=== PATIENT | male | born 1960 | race African-American/Black ===

== ENCOUNTER 2017-10-01 01:05 | Inpatient (IN) | payer BC, OTHER ==
[2017-10-01] VITALS (30 sets, daily range): BP systolic 101–161; BP diastolic 33–125
[~2017-10-01] VITALS: Ht 172.7 cm; Wt 79.8 kg
[2017-10-01] MEDS ORDERED: METF500T4 PO (01:16)
--- NOTE | 2017-10-01 01:25 | NUR ---
PT MONICA RANKIN 89 FROM HOME, CALLED BECAUSE PT IS ALTERED, PT A/O X 2 TO SELF/PLACE, BREATHING EVEN/UNLABORED, CARDIAC MONIOTR IN PLACE SINUS TACH 118, SKIN WARM/INTACT, NO C/O PAIN AT THIS TIME, PER PT "MY LAST DRINK WAS YESTERDAY, I DRINK A FEW GLASSES OF VODKAH A DAY"
[2017-10-01 01:27] LABS: BASOPHILS % (AUTO) 0.3 % (0.0-2.0); EOSINOPHILS % (AUTO) 0.3 % (0.0-6.0); HEMATOCRIT 42 % (39-51); HEMOGLOBIN 13.9 g/dL (13.5-17.5); LYMPHOCYTES % (AUTO) 11.5 % (20.0-44.0); MEAN CORPUSCULAR HEMOGLOBIN 29 PG (26.0-33.0); MEAN CORPUSCULAR HGB CONC 33 g/dl (31.0-36.0); MEAN CORPUSCULAR VOLUME 86 fL (80-96); MONOCYTES # (AUTO) 0.9 /CMM (0.1-1.30); MONOCYTES % (AUTO) 10.6 % (2.0-12.0); NEUTROPHILS # (AUTO) 6.9 /CMM (1.8-8.9); NEUTROPHILS % (AUTO) 77.3 % (43.0-81.0); PLATELET COUNT (AUTO) 148 /CMM (150-450); RDW COEFFICIENT OF VARIATION 20.3 (11.5-15.0); RED BLOOD CELL COUNT(AUTO) 4.88 MIL/uL (4.5-6.0); WHITE BLOOD COUNT (AUTO) 8.9 K/uL (4.3-11.0)
[2017-10-01] MEDS ORDERED: IV NS 0.9% 1,000 ML BAG IV ONE (01:30)
[2017-10-01 01:41] LABS: SERUM AMMONIA 62 umol/L (11-32)
[2017-10-01 01:42] LABS: INR 0.98 (0.87-1.13); PROTHROMBIN TIME 10.2 SECS (9.5-12.7)
[2017-10-01 01:47] LABS: CARBON DIOXIDE 22 mmol/L (21-32); CHLORIDE 92 mmol/L (98-107); CREATININE 1.3 mg/dL (0.6-1.3); GLUCOSE 309 mg/dL (74-106); POTASSIUM 3.4 mmol/L (3.5-5.1); SODIUM SERUM 136 mmol/L (136-145); UREA NITROGEN, BLOOD 10 mg/dL (7-18)
[2017-10-01 01:48] LABS: TROPONIN I 0.042 ng/mL (0.00-0.056)
[2017-10-01 01:50] LABS: ACETAMINOPHEN 0 ug/ml (10-30); ALANINE AMINOTRANSFERASE 31 U/L (12-78); ALBUMIN 4.1 g/dL (3.4-5.0); ALCOHOL, BLOOD < 3 mg/dL (0-0); ALKALINE PHOSPHATASE 87 U/L (46-116); ASPARTATE AMINOTRANSFERASE 32 U/L (15-37); BILIRUBIN,DIRECT 0.3 mg/dL (0.0-0.2); BILIRUBIN,TOTAL 1.1 mg/dL (0.2-1.0); TOTAL PROTEIN, SERUM 8.8 g/dL (6.4-8.2)
[2017-10-01] MEDS ORDERED: LACTULOSE 10 G/15 ML UDC (PYXIS) PO ONE (02:00)
[2017-10-01] MEDS ORDERED: LACTULOSE 10 G/15 ML UDC (PYXIS) ONE ×2 (02:03→02:04)
--- NOTE | 2017-10-01 02:10 | NUR ---
PT HAD EPISODE EMESIS, NO PAIN, ER MD AWARE, ORDERS TO FOLLOW
[2017-10-01] MEDS ORDERED: ONDANSETRON HCL/PF 4 MG/2 ML VIAL ONE (02:11)
[2017-10-01 02:21] LABS: APPEARANCE,URINE CLEAR (CLEAR); BILIRUBIN,URINE NEGATIVE (NEGATIVE); BLOOD, URINE TRACE-INTA Ery/uL (NEGATIVE); COLOR,URINE YELLOW (YELLOW); KETONES,URINE 1+ (NEGATIVE); LEUKOCYTE ESTERASE ,URINE NEGATIVE (NEGATIVE); NITRITE, URINE NEGATIVE (NEGATIVE); PH,URINE 6.5 (5.0-8.0); PROTEIN,URINE 2+ mg/dl (NEGATIVE); UGLUCOSE 3+ mg/dL (NEGATIVE); UROBILINOGEN,URINE 0.2 EU/dL (0.2)
[2017-10-01 02:27] LABS: BACTERIA,URINE Few /HPF (None Seen); SQUAMOUS EPITHELIAL CELL,UR Few /HPF (None Seen); WBC,URINE 0-2 /HPF (0-3); YEAST,URINE Rare /HPF (None Seen)
[2017-10-01] MEDS ORDERED: ONDANSETRON HCL/PF 4 MG/2 ML VIAL IV ONE (02:30)
--- NOTE | 2017-10-01 02:51 | NUR ---
ICU 256
[2017-10-01] MEDS ORDERED: ONDANSETRON HCL/PF 4 MG/2 ML VIAL IVP PRN (03:00)
[2017-10-01] MEDS ORDERED: MAG HYDROX/AL HYDROX/SIMETH 30 ML UDC PO PRN (03:00)
[2017-10-01] MEDS ORDERED: CHLORDIAZEPOXIDE HCL 25 MG CAPSULE PO PRN (03:00)
[2017-10-01] MEDS ORDERED: INSULIN REGULAR, HUMAN 100 UNIT in IV NS 0.9% 99 ML IV PRN ×2 (03:00)
[2017-10-01] MEDS ORDERED: ACETAMINOPHEN 325 MG TABLET PO PRN (03:00)
[2017-10-01] MEDS ORDERED: HYDROCODONE/APAP 5/325MG 1 EACH TABLET PO PRN (03:00)
[2017-10-01] MEDS ORDERED: ZOLPIDEM TARTRATE 5 MG TABLET PO PRN (03:00)
[2017-10-01] MEDS ORDERED: Z GUARD REMEDY 2 OZ OINT TP PRN (03:00)
[2017-10-01] MEDS ORDERED: INSULIN REGULAR, HUMAN 100 UNIT/ML 10 ML VIAL IV ONE (03:00)
[2017-10-01] MEDS ORDERED: MAGNESIUM HYDROXIDE 30 ML UDC PO PRN (03:00)
[2017-10-01] MEDS ORDERED: MORPHINE SULFATE INJ 2 MG/ML DISP.SYRIN IV PRN (03:00)
--- NOTE | 2017-10-01 03:06 | NUR ---
Jordin galloway in [facility] - 10/01/17 at 0307 by JULIA REPORT TO MICHAELA BALLARD
--- NOTE | 2017-10-01 03:07 | NUR ---
REPORT TO MICHAELA BALLARD, ALL QUESTIONS ANSWERED
[2017-10-01] MEDS ORDERED: INSULIN REGULAR, HUMAN 100 UNIT/ML 10 ML VIAL ONE (03:27)
[2017-10-01] MEDS ORDERED: POTASSIUM CHLORIDE 10 MEQ/50 ML PREMIXED IVPB FOR PERIPHERAL LINE IV ONE (03:30)
[2017-10-01] MEDS ORDERED: LACTULOSE 10 G/15 ML UDC (PYXIS) GT ONE (03:30)
[2017-10-01] MEDS ORDERED: LACTULOSE 10 G/15 ML UDC (PYXIS) GT SCH (03:30)
--- NOTE | 2017-10-01 03:31 | NUR ---
WITNESSED AND VERIFIED INSULIN DRIP 100U IN 100MLS NS IVPB TO BE TRANSFUSED AT 5U/HR PER DR. DOSHI/ PROTOCOL WITH NELLIE LE.
--- NOTE | 2017-10-01 03:38 | NUR ---
RN/ICU- ADMITTED THIS 57 Y/O MALE FROM ER VIA [facility]PIERSON, ACCOMPANIED BY ER STAFF PER ACLS PROTOCOL.NURSING FOCUS:ALTERED NUTRITION R/T DIAGNOSIS OF DKA. ROUTINE ICU ADMISSION CARE INITIATED. ON INSULIN DRIP AT 5 UNITS/HR PER DKA PROTOCOL.PT. IS AWAKE, ALERT, EXPRESSIVE OF NEEDS,PT. NOTED TO BE HAVING TREMORS ON UPPER EXTREMITIES, DENIES PAIN OR DISCOMFORT. PT. H/O ETOH ABUSE, PER PT. HAD ALCOHOL DRINK LAST FRIDAY, DOES NOT RECALL THE AMOUNT TAKEN.PT. IS A FULL CODE.
[2017-10-01] MEDS: INSULIN REGULAR, HUMAN 100 UNIT in IV NS 0.9% 99 ML IV PRN ×4 (03:49→12:17)
[2017-10-01 03:58] LABS: ABG BASE EXCESS 4.5 mmol/L; ABG OXYGEN SATURATION 95.5 % (92.0-98.5); ABG PCO2 35.3 mmHg (35.0-45.0); ABG PH 7.508 (7.350-7.450); ABG PO2 78.7 mmHg (75.0-100.0); AaDO2 28.8 mmHg; COHb 0.7 % (0.5-1.5); MetHb 0.9 % (0.0-1.5); SITE, ABG Right Radial; VENT MODE, BG ROOM AIR
[2017-10-01] MEDS: IV NS 0.9% 1,000 ML IV PRN ×3 (03:59→19:48)
[2017-10-01] MEDS: BLOOD SUGAR DIAGNOSTIC 1 EACH STRIP IN SCH ×10 (04:10→14:58)
[2017-10-01] MEDS ORDERED: Thiamine 100 MG/ML VIAL ONE (04:19)
[2017-10-01] MEDS: Thiamine 100 MG in IV D5W 50 ML IV SCH (04:24)
[2017-10-01] MEDS ORDERED: Folic acid 1 MG/0.2 ML VIAL ONE (04:36)
[2017-10-01] MEDS ORDERED: POTASSIUM CL. PREMIX PERIPHER. 100 ML ONE (04:51)
[2017-10-01] MEDS: Folic acid 1 MG in IV D5W 50 ML IV SCH (04:52)
[2017-10-01 04:56] LABS: AMYLASE 144 U/L (25-115); LIPASE 312 U/L (73-393)
[2017-10-01] MEDS: POTASSIUM CL. PREMIX PERIPHER. 50 ML IV SCH ×2 (05:02→06:03)
--- NOTE | 2017-10-01 06:55 | NUR ---
RN/ICU- PT. ASLEEP, AROUSABLE, NO NEURO STATUS CHANGE, REMAINS ON INSULIN DRIP AT 0.5 UNITS PER HR. PER DKA PROTOCOL.
--- NOTE | 2017-10-01 08:00 | NUR ---
Received 57 year old male patient with dx of DKA lying in bed awake, alert and oriented x 3. Able to move all extremities with full strength. Denies pain. Monitor shows sinus rhythm at 81 bpm. Pulses are palpable. IV in left hand infusing insulin at 0.5 units/hour and NS at 125 ml/hour. IV in RAC is heplocked. Patient is NPO. Able to urinate using urinal. Skin is warm, dry and intact. Temp is 99.3.
[2017-10-01] MEDS ORDERED: PANTOPRAZOLE 40 MG VIAL IV SCH (09:00)
[2017-10-01] MEDS: Potassium Chloride 10 MEQ in IV D5W 50 ML IV SCH ×2 (09:18→10:21)
--- NOTE | 2017-10-01 10:40 | NUR ---
Tech doing ultrasound of liver.
--- NOTE | 2017-10-01 11:30 | NUR ---
Patient received kcl 10 meq ivp x 2 over two hours. BMP was ordered. Insulin drip still off. BG at 11:00 was 92.
--- NOTE | 2017-10-01 12:30 | NUR ---
Insulin drip stopped per MD order. Patient will now have accuchecks Q2 hours with regular insulin sliding scale.
[2017-10-01 12:31] LABS: CALCIUM, SERUM 9.3 mg/dL (8.5-10.1); CREATININE 0.8 mg/dL (0.6-1.3); POTASSIUM 3.5 mmol/L (3.5-5.1)
[2017-10-01] MEDS ORDERED: DEXTROSE 50%-WATER 50 ML DISP.SYRIN IV PRN (13:00)
[2017-10-01] MEDS ORDERED: BLOOD SUGAR DIAGNOSTIC 1 EACH STRIP IN SCH (13:00)
[2017-10-01] MEDS ORDERED: INSULIN REGULAR, HUMAN 100 UNIT/ML 3 ML VIAL SQ PRN (13:00)
--- NOTE | 2017-10-01 15:00 | NUR ---
Accucheck at 15:00 - 89
--- NOTE | 2017-10-01 15:14 | NUR ---
Patient's is at bedside. They are waiting to speak with Dr. Zaman. Gave patient some ice chips as he is alert and oriented x 3.
[2017-10-01] MEDS: CHLORDIAZEPOXIDE HCL 25 MG CAPSULE PO SCH (17:32)
--- NOTE | 2017-10-01 18:26 | NUR ---
Patient was given librium 25 mg po at 17:45. He still has tremors in his hands but denies anxiety or restlessness. He said he feels very calm. Regular diet was ordered for dinner but he only ate about 20%. I asked him if he wanted me to leave the tray to finish later but he said no. He denied nausea but said he had eaten enough. Vital signs stable. Patient watching TV in his room.
--- NOTE | 2017-10-01 19:30 | NUR ---
ENERGY ECONOMIST INITIAL NOTE RECEIVED REPORT FROM FIDE BALLARD. PT IN BED. A/A/O X4. LUNG SOUNDS CLEAR. BOWEL SOUNDS PRESENT. PULSES PRESENT. IV PATENT AND INTACT. PT CONTINENT TO URINE AND STOOL. BED IN LOW LOCKED POSITION. CALL LIGHT WITHIN REACH. WILL CONTINUE TO MONITOR.
--- NOTE | 2017-10-01 23:30 | NUR ---
HOTBED OPERATOR PT IN BED, RESTING. NO DISTRESS. NO PAIN. WILL CONTINUE TO MONITOR.
[2017-10-02] VITALS (8 sets, daily range): BP systolic 130–159; BP diastolic 77–93
[2017-10-02] MEDS: CHLORDIAZEPOXIDE HCL 25 MG CAPSULE PO SCH ×4 (00:25→18:25)
[2017-10-02] MEDS: Thiamine 100 MG in IV D5W 50 ML IV SCH (02:51)
[2017-10-02] MEDS: IV NS 0.9% 1,000 ML IV PRN (02:51)
[2017-10-02] MEDS: Folic acid 1 MG in IV D5W 50 ML IV SCH (02:51)
--- NOTE | 2017-10-02 03:39 | NUR ---
LINK WIRE FABRIC MACHINE OPERATOR SPOKE WITH DR SHERMAN REGARDING TELE STATUS. DR SHERMAN AGREES TO TRANSFER PATIENT TO TELE. PT IS STABLE, OFF OF INSULIN DRIP. PT AWARE. WILL ENDORSE TO NEXT RN.
--- NOTE | 2017-10-02 04:00 | NUR ---
FORESTRY CONSULTANT REPORT GIVEN TO TRINIDAD BALLARD FOR MARYANA. PT TRANSPORTED IN STABLE CONDITION.
--- NOTE | 2017-10-02 04:10 | NUR ---
RN NOTES RECEIVED PT FROM ICU VIA HOSPITAL BED. PT AWAKE, ALERT AND ORIENTED X2-3, CONFUSED. PT ON ROOM AIR AND TOLERATED WELL. IV ACCESS ON LEFT HAND PATENT AND INTACT WITH ONGOING IVF INFUSING WELL. ATTACHED TO TELE MONITOR WHICH READS SINUS RHYTHM AT 67. VITAL SIGNS STABLE, BLOOD SUGAR 94MG/DL. SKIN CLEAR AND INTACT. PT DENIES ANY PAIN AND DISCOMFORT. REORIENTED PT FREQUENTLY. PT NOTED CALLING AND WALKING AROUND THE ROOM. KEPT PT ATTENDED. WILL CONTINUE TO MONITOR PT.
--- NOTE | 2017-10-02 05:30 | NUR ---
RN NOTES CALLED AND SPOKE TO DR QUINTANILLA REGARDING PT VERY CONFUSED, GETTING OUT OF THE ROOM, WALKING AROUND THE HALLWAY AND WANTED TO GO HOME. PER DR SHERMAN, ASK DR HOLLAND TO SEE JONAH PT. FREQUENT REORIENTATION OF THE PT DONE. WILL CONTINUE TO MONITOR PT.
--- NOTE | 2017-10-02 07:00 | NUR ---
RN NOTES PATIENT RESTING IN BED. PATIENT ALERT ORIENTEDX1, CONFUSED. NO FACIAL GRIMACES NOTED. NONLABORED BREATHING NOTED ON ROOM AIR.BED IN LOWEST LOCKED POSITION. CALL LIGHT WITHIN REACH. WILL CONTINUE TO MONITOR
--- NOTE | 2017-10-02 07:00 | NUR ---
RN NOTES: PATIENT RESTING IN BED. NO SIGNS OF DISTRESS. PATIENT CONFUSED AO X1. NO IV SITE NOTED. PATIENT PULLED IT OUT PREVIOUS SHIFT. PATIENT REFUSING IV LINE CURRENTLY. BENEFITS AND RISKS EXPLAINED. WILL CONTINUE TO OFFER. BED IN LOWEST LOCKED POSITION. WILL CONTINUE TO MONITOR
--- NOTE | 2017-10-02 07:00 | NUR ---
RN NOTES SPOKE TO DR HOLLAND, MADE HER AWARE TO SEE THE PT TODAY FOR CONSULT PER DR SHERMAN. PT STILL VERY CONFUSED, PULLED OUT HIS IV LINE, AND WALKING OUT OF THE ROOM AND WANTS TO GO HOME. DR HOLLAND ORDERED TO GIVE ZYPREXA 2.5MG TAB PO X1 NOW AND WILL COME TO SEE THE PT. REORIENT PT AND WILL CONTINUE TO MONITOR PT.
[2017-10-02] MEDS ORDERED: OLANZAPINE 2.5 MG TABLET ONE (07:05)
--- NOTE | 2017-10-02 07:10 | NUR ---
RN NOTES PT IN THE ROOM, STILL CONFUSED, KEEPS ON WALKING AROUND THE ROOM. ZYPREXA 2.5 MG TAB GIVEN PO. WILL REINSERT NEW IV LINE WHEN PT CALMS DOWN. FREQUENT REORIENTATION DONE. ENDORSED TO MORNING RN FOR CONTINUITY OF CARE.
[2017-10-02] MEDS ORDERED: OLANZAPINE 2.5 MG TABLET PO SCH (07:30)
[2017-10-02 07:52] LABS: BASOPHILS # (AUTO) 0.1 /CMM (0.0-0.2); BASOPHILS % (AUTO) 0.7 % (0.0-2.0); EOSINOPHILS # (AUTO) 0.2 /CMM (0.0-0.7); EOSINOPHILS % (AUTO) 2.1 % (0.0-6.0); HEMATOCRIT 40 % (39-51); HEMOGLOBIN 13.3 g/dL (13.5-17.5); LYMPHOCYTES # (AUTO) 1.4 /CMM (0.8-4.8); LYMPHOCYTES % (AUTO) 14.9 % (20.0-44.0); MEAN CORPUSCULAR HEMOGLOBIN 29 PG (26.0-33.0); MEAN CORPUSCULAR HGB CONC 34 g/dl (31.0-36.0); MEAN CORPUSCULAR VOLUME 87 fL (80-96); MONOCYTES # (AUTO) 0.6 /CMM (0.1-1.30); MONOCYTES % (AUTO) 6.5 % (2.0-12.0); NEUTROPHILS # (AUTO) 7.1 /CMM (1.8-8.9); NEUTROPHILS % (AUTO) 75.8 % (43.0-81.0); PLATELET COUNT (AUTO) 116 /CMM (150-450); RDW COEFFICIENT OF VARIATION 20.5 (11.5-15.0); RED BLOOD CELL COUNT(AUTO) 4.58 MIL/uL (4.5-6.0); WHITE BLOOD COUNT (AUTO) 9.4 K/uL (4.3-11.0)
[2017-10-02 08:08] LABS: INR 1.01 (0.87-1.13); PROTHROMBIN TIME 10.5 SECS (9.5-12.7)
[2017-10-02 08:11] LABS: ALBUMIN 3.8 g/dL (3.4-5.0); BILIRUBIN,TOTAL 1.6 mg/dL (0.2-1.0); CALCIUM, SERUM 9.5 mg/dL (8.5-10.1); CREATININE 0.9 mg/dL (0.6-1.3); MAGNESIUM 1.5 mg/dL (1.8-2.4); PHOSPHORUS 1.6 mg/dL (2.5-4.9); POTASSIUM 3.5 mmol/L (3.5-5.1); TOTAL PROTEIN, SERUM 8.1 g/dL (6.4-8.2)
[2017-10-02 08:17] LABS: THYROID STIMULATING HORMONE 1.758 uIU/mL (0.358-3.74)
[2017-10-02] MEDS: PANTOPRAZOLE 40 MG TABLET.DR PO SCH (08:18)
[2017-10-02] MEDS: Potassium Phosphate meq 11 MEQ in IV D5W 100 ML IV SCH ×2 (11:00→14:00)
[2017-10-02] MEDS: Magnesium 1GM/D5W 100ML PREMIX 100 ML IV SCH ×2 (11:30→12:30)
[2017-10-02] MEDS: LACTULOSE 10 G/15 ML UDC (PYXIS) PO SCH ×2 (13:49→21:37)
--- NOTE | 2017-10-02 14:12 | NUR ---
RN NOTES: PATIENT REMOVED IV LINE DURING PREVIOUS SHIFT. ATTEMPTED STARTING IV LINEX3, UNSUCCESSFUL. PATIENT REFUSING PERIPHERAL LINE. DR HINTON AWARE. ORDERED MAGNESIUM OXIDE 400 MG DAILY WELL KCL 40 MG DAILY. SPOKE WITH GILSON FROM PHARMACY REGARDING ORDERS.
[2017-10-02] MEDS ORDERED: K PHOS NEUTRAL 250 MG TABLET PO ONE (14:30)
--- NOTE | 2017-10-02 15:00 | NUR ---
RN NOTES NO DISCHARGE TODAY PER DR HINTON
[2017-10-02] MEDS: MAGNESIUM OXIDE 400 MG TABLET PO SCH (15:14)
[2017-10-02] MEDS: POTASSIUM CHLORIDE 20 MEQ TAB.PRT.SR PO SCH (15:15)
[2017-10-02] MEDS ORDERED: INSULIN REGULAR, HUMAN 100 UNIT/ML 3 ML VIAL SQ PRN (16:00)
[2017-10-02] MEDS ORDERED: DEXTROSE 50%-WATER 50 ML DISP.SYRIN IV PRN (16:00)
[2017-10-02] MEDS: BLOOD SUGAR DIAGNOSTIC 1 EACH STRIP IN SCH ×2 (16:40→21:37)
[2017-10-02] MEDS: OLANZAPINE 2.5 MG TABLET PO SCH (16:41)
--- NOTE | 2017-10-02 18:49 | NUR ---
RN NOTES: PATIENT RESTING IN BED. PATIENT ALERT ORIENTEDX1, CONFUSED. NO FACIAL GRIMACES NOTED. NONLABORED BREATHING NOTED ON ROOM AIR. BED IN LOWEST LOCKED POSITION. CALL LIGHT WITHIN REACH. SITTER AT BEDSIDE. DURING SHIFT, PATIENT KEPT CLEAN AND DRY. NO SEIZURES NOTED. NO VOMITTING.
--- NOTE | 2017-10-02 19:20 | NUR ---
MS RN NOTES RECEIVED PT IN SITTING UP IN BED, AWAKE & VERBALLY RESPONSIVE. CONFUSED. NO DISTRESS, NO SOB NOTED AT THIS TIME. RESPIRATION IS EVEN AND UNLABORED. NO S/S OF HYPO/ HYPERGLYCEMIA NOTED AT THIS TIME. DENIES ANY PAIN OR DISCOMFORT. PT WITH NO IV SITE NOTED, ENDORSED BY THE DAY SHIFT RN. ATTEMPTED TO INSERT IV BUT PT REFUSED X 3, RISK AND BENEFITS EXPLAINED, CHARGE NURSE JUAN J AWARE. PT REFUSED BODY ASSESSMENT, RISK AND BENEFITS EXPLAINED. ON SITTER FOR SAFETY. ALL NEEDS ATTENDED. SAFETY PRECAUTIONS OBSERVED. WILL CONT TO MONITOR.
--- NOTE | 2017-10-02 19:33 | NUR ---
RN NOTES: PATIENT RESTING IN BED. PATIENT ALERT ORIENTEDX1, CONFUSED. NO FACIAL GRIMACES NOTED. NONLABORED BREATHING NOTED ON ROOM AIR. BED IN LOWEST LOCKED POSITION. CALL LIGHT WITHIN REACH. SITTER AT BEDSIDE. DURING SHIFT, PATIENT KEPT CLEAN AND DRY. NO SEIZURES NOTED. NO VOMITTING. ATTEMPTED IV INSERTION AGAIN, PATIENT REFUSING. DR HINTON AWARE OF PATIENT'S REFUSAL. BENEFITS AND RISKS EXPLAINED TO PATIENT, MULTIPLE TIMES. PATIENT STILL REFUSING. ENDORSED TO NEXT SHIFT
--- NOTE | 2017-10-02 21:07 | NUR ---
pt is very anxious at this time, screaming, walking in the hallway trying to get out of the exit door, very angry at this time. pt with 1 on 1 sitter for safety informed dr. rose with n.o noted and carried out.
[2017-10-02] MEDS ORDERED: LORAZEPAM 1 MG TABLET ONE (21:10)
[2017-10-02] MEDS ORDERED: LORAZEPAM 1 MG TABLET PO PRN (21:30)
--- NOTE | 2017-10-02 21:38 | NUR ---
pt is very anxious at this time, walking in the hallway trying to get out of the exit door, very angry at this time. pt with 1 on 1 sitter for safety. ativan given as ordered. pt refused to check his vs . dr. rose aware. will cont to monitor
--- NOTE | 2017-10-03 00:23 | NUR ---
PT REFUSED LIBRIUM , DOESN'T WANT TO BE BOTHERED, RISK AND BENEFITS EXPLAINED, PT STILL REFUSED X 3, CHARGE NURSE AWARE
[2017-10-03] MEDS: LACTULOSE 10 G/15 ML UDC (PYXIS) PO SCH ×2 (05:00→12:21)
--- NOTE | 2017-10-03 05:31 | NUR ---
PT REFUSED BLOOD DRAW X 3 , RISK AND BENEFITS EXPLAINED, PT REFUSED X3. FULL TIME PARAMEDIC AT BEDSIDE. COOK MORNING WILL COME BACK LATER TO TRY AGAIN
[2017-10-03] MEDS: BLOOD SUGAR DIAGNOSTIC 1 EACH STRIP IN SCH ×4 (05:43→22:19)
--- NOTE | 2017-10-03 05:50 | NUR ---
PT REFUSED TO TAKE LACTULOSE, RISK AND BENEFITS EXPLAINED BUT PT STILL REFUSED X 3. WILL CONT TO MONITOR.
[2017-10-03] MEDS: CHLORDIAZEPOXIDE HCL 25 MG CAPSULE PO SCH ×2 (06:00)
--- NOTE | 2017-10-03 06:25 | NUR ---
PT REFUSED TO TAKE LIBRIUM , RISK AND BENEFITS EXPLAINED, PT STILL REFUSED . CHARGE NURSE AWARE.
--- NOTE | 2017-10-03 06:29 | NUR ---
MS RN NOTES PT RESTING IN BED, AROUSES EASILY. CONFUSED AND VERBALLY RESPONSIVE. . NO DISTRESS, NO SOB NOTED AT THIS TIME. RESPIRATION IS EVEN AND UNLABORED. NO S/S OF HYPO/ HYPERGLYCEMIA NOTED AT THIS TIME. LATEST BS : 107. DENIES ANY PAIN OR DISCOMFORT. ON SITTER FOR SAFETY. ALL NEEDS ATTENDED AND MET. SAFETY PRECAUTIONS OBSERVED. WILL ENDORSE TO NEXT SHIFT FOR MARYANA.
--- NOTE | 2017-10-03 07:30 | NUR ---
RN NOTES: PATIENT RESTING IN BED. NONLABORED BREATHING NOTED ON ROOM AIR. NO SIGNS OF DISTRESS. PATIENT ALERT ORIENTED X1 , CONFUSED. BED IN LOWEST LOCKED POSITION. CALL LIGHT WITHIN REACH. SITTER AT BED SIDE. WILL CONTINUE TO MONITOR
--- NOTE | 2017-10-03 07:48 | NUR ---
RN NOTES: PATIENT RESTING IN BED. NONLABORED BREATHING NOTED ON ROOM AIR. NO SIGNS OF DISTRESS. PATIENT ALERT ORIENTEDX, CONFUSED. BED IN LOWEST LOCKED POSITION. CALL LIGHT WITHIN REACH. SITTER AT BED SIDE. WILL CONTINUE TO MONITOR
[2017-10-03 08:00] VITALS: BP 108/72
[2017-10-03] MEDS: THIAMINE HCL 100 MG TABLET PO SCH (08:40)
[2017-10-03] MEDS: PANTOPRAZOLE 40 MG TABLET.DR PO SCH (08:40)
[2017-10-03] MEDS: OLANZAPINE 2.5 MG TABLET PO SCH (08:43)
[2017-10-03] MEDS: FOLIC ACID 1 MG TABLET PO SCH (08:43)
[2017-10-03 12:12] LABS: CALCIUM, SERUM 9.9 mg/dL (8.5-10.1); MAGNESIUM 1.6 mg/dL (1.8-2.4); PHOSPHORUS 2.8 mg/dL (2.5-4.9); POTASSIUM 3.8 mmol/L (3.5-5.1)
--- NOTE | 2017-10-03 12:18 | NUR ---
RN NOTES BS 134. PATIENT REFUSING TO TAKE INSULIN. PATIENT STATING HE WILL ONLY EAT A SNACK. BENEFITS AND RISKS EXPLAINED. PATIENT ALSO STATES THAT HE DOES NOT TAKE INSULIN AT HOME
[2017-10-03] MEDS: POTASSIUM CHLORIDE 20 MEQ TAB.PRT.SR PO SCH (12:27)
[2017-10-03] MEDS: MAGNESIUM OXIDE 400 MG TABLET PO SCH (12:27)
[2017-10-03] MEDS ORDERED: LACTULOSE 10 G/15 ML UDC (PYXIS) PO SCH ×2 (12:30→21:00)
--- NOTE | 2017-10-03 12:40 | NUR ---
RN NOTES: IV LINE, GAUGE 22 STARTED ON LEFT HAND, PATENT AND INTACT.
[2017-10-03] MEDS: IV NS 0.9% 1,000 ML IV PRN ×2 (13:46→22:36)
[2017-10-03 16:00] VITALS: BP 110/70
--- NOTE | 2017-10-03 17:40 | NUR ---
RN NOTES: PATIENT CONSUMED DINNER BEFORE BLOOD SUGRAR CHECK. BLOOD SUGAR 146. PATIENT REFUSING INSULIN. BENEFITS AND RISKS EXPLAINED
--- NOTE | 2017-10-03 19:32 | NUR ---
RN NOTES: PATIENT RESTING IN BED. NONLBAORED BREATHING ON ROOM AIR. PATIENT AOX2. PATIENT ACKNOWLEDGING BEING IN THE HOSPITAL. IV SITE PATENT AND INTACT. PATIENT ON IV HYDRATION. NO SEIZURE NOTED DURING SHIFT. PATIENT'S FACIAL EXPRESSIONS INDICATE CALMNESS. BED IN LOWEST LOCKED POSITION. CALL LIGHT WITHIN REACH. SITTER AT BEDSIDE. ENDORSED TO NEXT SHIFT
--- NOTE | 2017-10-03 19:35 | NUR ---
MS RN NOTES RECEIVED PT IN BED, AWAKE & VERBALLY RESPONSIVE. JOHANA[EARS MORE ALERT. NO DISTRESS, NO SOB NOTED AT THIS TIME. RESPIRATION IS EVEN AND UNLABORED. NO S/S OF HYPO/ HYPERGLYCEMIA NOTED AT THIS TIME. DENIES ANY PAIN OR DISCOMFORT. IV SITE ON LEFT HAND INTACT AND PATENT. IVF INFUSING WELL. ON SITTER FOR SAFETY. ALL NEEDS ATTENDED. SAFETY PRECAUTIONS OBSERVED. WILL CONT TO MONITOR.
[2017-10-03 20:00] VITALS: BP 126/92
[2017-10-04] MEDS: BLOOD SUGAR DIAGNOSTIC 1 EACH STRIP IN SCH ×2 (06:07→12:06)
[2017-10-04] MEDS: IV NS 0.9% 1,000 ML IV PRN (06:43)
--- NOTE | 2017-10-04 07:03 | NUR ---
MS RN NOTES PT SITTING UP IN BED, AWAKE & VERBALLY RESPONSIVE. APPEARS MORE ALERT. NO DISTRESS, NO SOB NOTED AT THIS TIME. RESPIRATION IS EVEN AND UNLABORED. NO S/S OF HYPO/ HYPERGLYCEMIA NOTED AT THIS TIME. DENIES ANY PAIN OR DISCOMFORT. IV SITE ON LEFT HAND INTACT AND PATENT. IVF INFUSING WELL. ON SITTER FOR SAFETY. ALL NEEDS ATTENDED. SAFETY PRECAUTIONS OBSERVED. ABLE TO AMBULATE WITHOUT DIFFICULTY. WILL ENDORSE TO NEXT SHIFT FOR MARYANA.
--- NOTE | 2017-10-04 07:50 | NUR ---
MS/RN OPENING NOTE PATIENT RECEIVED IN BED IN STABLE CONDITION. A/O X 3. NO SIGNS OF ACUTE DISTRESS. NO COMPLAIN OF PAIN OR DISCOMFORT. ALL NEEDS ATTENDED TO. CALL LIGHT WITHIN REACH. WILL CONTINUE TO MONITOR TO ENSURE SAFETY.
[2017-10-04 08:00] VITALS: BP 147/94
[2017-10-04] MEDS: THIAMINE HCL 100 MG TABLET PO SCH (08:09)
[2017-10-04] MEDS: PANTOPRAZOLE 40 MG TABLET.DR PO SCH (08:09)
[2017-10-04] MEDS: FOLIC ACID 1 MG TABLET PO SCH (08:09)
[2017-10-04] MEDS: MAGNESIUM OXIDE 400 MG TABLET PO SCH (08:09)
[2017-10-04] MEDS: POTASSIUM CHLORIDE 20 MEQ TAB.PRT.SR PO SCH (08:09)
[2017-10-04 08:17] LABS: BASOPHILS # (AUTO) 0.1 /CMM (0.0-0.2); BASOPHILS % (AUTO) 0.8 % (0.0-2.0); EOSINOPHILS # (AUTO) 0.2 /CMM (0.0-0.7); EOSINOPHILS % (AUTO) 2.7 % (0.0-6.0); HEMATOCRIT 37 % (39-51); HEMOGLOBIN 12.3 g/dL (13.5-17.5); LYMPHOCYTES # (AUTO) 1.9 /CMM (0.8-4.8); LYMPHOCYTES % (AUTO) 23.6 % (20.0-44.0); MEAN CORPUSCULAR HEMOGLOBIN 30 PG (26.0-33.0); MEAN CORPUSCULAR HGB CONC 34 g/dl (31.0-36.0); MEAN CORPUSCULAR VOLUME 88 fL (80-96); MONOCYTES # (AUTO) 0.9 /CMM (0.1-1.30); MONOCYTES % (AUTO) 11.1 % (2.0-12.0); NEUTROPHILS # (AUTO) 5.1 /CMM (1.8-8.9); NEUTROPHILS % (AUTO) 61.8 % (43.0-81.0); PLATELET COUNT (AUTO) 111 /CMM (150-450); RDW COEFFICIENT OF VARIATION 20.7 (11.5-15.0); RED BLOOD CELL COUNT(AUTO) 4.18 MIL/uL (4.5-6.0); WHITE BLOOD COUNT (AUTO) 8.2 K/uL (4.3-11.0)
[2017-10-04 08:31] LABS: CARBON DIOXIDE 23 mmol/L (21-32); CHLORIDE 103 mmol/L (98-107); CREATININE 0.8 mg/dL (0.6-1.3); GLUCOSE 126 mg/dL (74-106); MAGNESIUM 1.5 mg/dL (1.8-2.4); PHOSPHORUS 2.9 mg/dL (2.5-4.9); POTASSIUM 3.9 mmol/L (3.5-5.1); SODIUM SERUM 139 mmol/L (136-145); UREA NITROGEN, BLOOD 8 mg/dL (7-18)
[2017-10-04 08:39] LABS: THYROID STIMULATING HORMONE 1.358 uIU/mL (0.358-3.74)
[2017-10-04 08:53] LABS: SERUM AMMONIA < 10 umol/L (11-32)
[2017-10-04] MEDS: Magnesium 1GM/D5W 100ML PREMIX 100 ML IV SCH ×2 (12:01→13:20)
--- NOTE | 2017-10-04 13:27 | NUR ---
MS/RN SEEN BY DR HERNANDEZ PATIENT SEEN BY DR HERNANDEZ WITH ORDERS TO DC HOME TODAY.
[2017-10-04 15:33] VITALS: BP 135/79
--- NOTE | 2017-10-04 15:42 | NUR ---
MS/WIRE COMMUNICATIONS ENGINEER PATIENT DISCHARGE HOME IN STABLE CONDITION. A/O X 3. NO SIGNS OF ACUTE DISTRESS. NO COMPLAIN OF PAIN OR DISCOMFORT. DISCHARGE INSTRUCTIONS AND EDUCATION PROVIDED. VERBALIZED UNDERSTANDING. OFFERED FLU SHOT, PER PATIENT AND PATIENT'S JOAQUIM, THEY WILL GET IT AT THEIR DOCTOR'S OFFICE. ALSO MADE AWARE TO FOLLOW UP WITH PRIMARY DOCTOR WITHIN A WEEK. ALL NEEDS ATTENDED TO. LEFT VIA PRIVATE CAR IN STABLE CONDITION ACCOMPANIED BY .
== END 2017-10-04 15:45 | disposition home or self-care (01) | DRG 432 ==
LOC: ER 01:06 → ICU 02:53 → MED 10-02 04:07 → TELE 10-02 05:07 → MED 10-02 08:52
PROVIDERS: ADMIT Internal Medicine; ATTEND Internal Medicine
DX: K70.40 Alcoholic hepatic failure without coma (principal); G93.41 Metabolic encephalopathy; F33.2 Major depressive disorder, recurrent severe without psychotic features; E11.10 Type 2 diabetes mellitus with ketoacidosis without coma; E44.1 Mild protein-calorie malnutrition; E87.1 Hypo-osmolality and hyponatremia; E86.0 Dehydration; E87.6 Hypokalemia; F10.20 Alcohol dependence, uncomplicated; Y90.0 Blood alcohol level of less than 20 mg/100 ml; E78.5 Hyperlipidemia, unspecified; I10 Essential (primary) hypertension; I70.90 Unspecified atherosclerosis; E66.9 Obesity, unspecified; K74.60 Unspecified cirrhosis of liver; E86.1 Hypovolemia; F29 Unspecified psychosis not due to a substance or known physiological condition; F41.9 Anxiety disorder, unspecified; K21.9 Gastro-esophageal reflux disease without esophagitis; Z79.84 Long term (current) use of oral hypoglycemic drugs; Z82.49 Family history of ischemic heart disease and other diseases of the circulatory system
CPT/HCPCS: 36415; 36600; 70450-TC; 71010-TC; 76705-TC; 80048-TC; 80053-TC; 80061-TC; 80076-TC; 80305; 81000-TC; 82010-TC; 82140-TC; 82150-TC; 82746; 82962-TC; 83540-TC; 83690-TC; 83735-TC; 84100-TC; 84443-TC; 84484-TC; 85025-TC; 85730-TC; 87040-TC; 87081-TC; 87086-TC; 93307-TC; A4606; C9113; G0480; J1815; J2405; J3411; J3475; J3480; J3490; J7030; J7060; Z7610

== ENCOUNTER 2018-07-01 05:25 | Emergency (ER) | payer BC ==
[~2018-07-01] VITALS: Ht 167.6 cm; Wt 74.4 kg
[~2018-07-01 05:25] MED LIST: METF500T6 PO
--- NOTE | 2018-07-01 05:25 | NUR ---
"WITNESSED SEIZURE BY FOR 1; VERSED 5MG IV GIVEN MEDICINE WORKER"; POSTICTAL NOW. BS [address] TO HOSPITAL. PT PLACED ON 15L 02 ON SIMPLE 02 MASK D/T LOW 02 SATURATION. SKIN IS WARM AND INTACT. PATIENT IS NOT ALERT AND ORIENTED BUT WITH REACTIVE PUPILS. PT PLACED ON PULSE OX AND HEART MONITOR. WILL CONTINUE TO MONITOR FOR ANY CHANGES DURING THE SHIFT.
--- NOTE | 2018-07-01 05:26 | NUR ---
ER MD DOSHI AT BEDSIDE
[2018-07-01] MEDS ORDERED: IV NS 0.9% 1,000 ML BAG IV ONE ×2 (06:00→08:30)
--- NOTE | 2018-07-01 06:18 | NUR ---
PT OFF TO CT
--- NOTE | 2018-07-01 06:25 | NUR ---
PT BACK FROM CT
[2018-07-01] MEDS ORDERED: KETOROLAC TROMETHAMINE INJ 60 MG/2 ML VIAL IM ONE (06:30)
[2018-07-01 06:49] LABS: EOSINOPHILS % (AUTO) 0.3 % (0.0-6.0); HEMATOCRIT 46 % (39-51); HEMOGLOBIN 14.9 g/dL (13.5-17.5); LYMPHOCYTES # (AUTO) 0.6 /CMM (0.8-4.8); LYMPHOCYTES % (AUTO) 5.2 % (20.0-44.0); MEAN CORPUSCULAR HEMOGLOBIN 30 PG (26.0-33.0); MEAN CORPUSCULAR HGB CONC 33 g/dl (31.0-36.0); MEAN CORPUSCULAR VOLUME 92 fL (80-96); MONOCYTES # (AUTO) 0.2 /CMM (0.1-1.30); MONOCYTES % (AUTO) 1.8 % (2.0-12.0); NEUTROPHILS # (AUTO) 11.5 /CMM (1.8-8.9); NEUTROPHILS % (AUTO) 92.7 % (43.0-81.0); PLATELET COUNT (AUTO) 201 /CMM (150-450); RDW COEFFICIENT OF VARIATION 15.9 (11.5-15.0); RED BLOOD CELL COUNT(AUTO) 4.96 MIL/uL (4.5-6.0); WHITE BLOOD COUNT (AUTO) 12.4 K/uL (4.3-11.0)
[2018-07-01 07:04] LABS: ALCOHOL, BLOOD < 3 mg/dL (0-0); CALCIUM, SERUM 9.3 mg/dL (8.5-10.1); CARBON DIOXIDE 29 mmol/L (21-32); CHLORIDE 92 mmol/L (98-107); CREATININE 1.1 mg/dL (0.6-1.3); GLUCOSE 146 mg/dL (74-106); POTASSIUM 3.6 mmol/L (3.5-5.1); SODIUM SERUM 134 mmol/L (136-145); UREA NITROGEN, BLOOD 11 mg/dL (7-18)
--- NOTE | 2018-07-01 07:18 | NUR ---
PATIENT PULLED OUT IV. ER MD LEMUS MADE AWARE AND DOES NOT WANT NEW IV PLACED AT THIS TIME. WILL ENDORSE TO AM NURSE
--- NOTE | 2018-07-01 07:19 | NUR ---
PATIENT ATTEMPTING TO GIVE URINE SAMPLE. WILL CONTINUE TO MONITOR
[2018-07-01] MEDS ORDERED: CHLORDIAZEPOXIDE HCL 25 MG CAPSULE PO ONE (08:30)
[2018-07-01] MEDS ORDERED: ONDANSETRON HCL/PF - ER 4 MG/2 ML VIAL IV ONE (08:30)
[2018-07-01] MEDS ORDERED: Thiamine 100 MG in IV D5W 50 ML IV SCH (08:30)
[2018-07-01] MEDS ORDERED: CHLORDIAZEPOXIDE HCL 25 MG CAPSULE ONE (08:34)
[2018-07-01] MEDS ORDERED: ONDANSETRON HCL/PF 4 MG/2 ML VIAL ONE (08:34)
--- NOTE | 2018-07-01 08:39 | NUR ---
IV REINSERTED RIGHT WRIST 20G. MEDICATIONS STARTED ORDERED PER MD
--- NOTE | 2018-07-01 09:35 | NUR ---
Patient is resting comfortably in bed with eyes closed. Easily aroused. VSS
--- NOTE | 2018-07-01 10:15 | NUR ---
IV removed. Catheter intact and site benign. Pressure and 4x4 applied to site. No bleeding noted.Patient discharged to home in stable condition. Written and verbal after care instructions given. Patient verbalizes understanding of instruction.
[2018-07-01 10:21] VITALS: BP 135/82
== END 2018-07-01 10:22 | disposition home or self-care (01) ==
LOC: ER 05:26
DX: F10.239 Alcohol dependence with withdrawal, unspecified (principal); R56.9 Unspecified convulsions; E11.9 Type 2 diabetes mellitus without complications; Y90.0 Blood alcohol level of less than 20 mg/100 ml
CPT/HCPCS: 36415; 70450; 71045; 80048; 82140; 82962; 85025; 93005; 96365; 96375; 99285; A4606; G0480; J2405 ×2; J3411 ×2; J7030 ×2; J7060 ×2; Z7610

== ENCOUNTER 2018-08-07 21:08 | Emergency (ER) | payer BC ==
[~2018-08-07] VITALS: Ht 172.7 cm; Wt 76.2 kg
[~2018-08-07 21:08] MED LIST changes: +METF-440 PO; -METF500T6 PO
--- NOTE | 2018-08-07 21:12 | NUR ---
PT BIBRA FROM HOME TO ER BED 15. PER REPORT, PT WAS FOUND BY A FRIEND PASSED OUT. HX OF ETOH ABUSE. HX OF ALCOHOLIC SEIZURE. NO OBVIOUS SIGN OF TRAUMA. PT IS SLEEPING. AROUSABLE OPEN EYES BUT VERBALLY NON RESPONSIVE. PLACED O MONITOR. VSS. AWAITING MD BEAVERS.
--- NOTE | 2018-08-07 21:19 | NUR ---
FOSTER PA AT BEDSIDE FOR EVAL.
--- NOTE | 2018-08-07 21:30 | NUR ---
DIRECTOR OF INFECTION PREVENTION AT BEDSIDE FOR BLOOD DRAW.
[2018-08-07 21:37] LABS: BASOPHILS # (AUTO) 0.1 /CMM (0.0-0.2); HEMOGLOBIN 14.9 g/dL (13.5-17.5); NEUTROPHILS # (AUTO) 2.9 /CMM (1.8-8.9); RDW COEFFICIENT OF VARIATION 20.3 (11.5-15.0)
[2018-08-07 21:41] LABS: BASOPHILS % (AUTO) 1.1 % (0.0-2.0); EOSINOPHILS % (AUTO) 2.7 % (0.0-6.0); HEMATOCRIT 45 % (39-51); LYMPHOCYTES % (AUTO) 33.1 % (20.0-44.0); MEAN CORPUSCULAR HEMOGLOBIN 30 PG (26.0-33.0); MEAN CORPUSCULAR HGB CONC 33 g/dl (31.0-36.0); MEAN CORPUSCULAR VOLUME 91 fL (80-96); MONOCYTES # (AUTO) 0.9 /CMM (0.1-1.30); MONOCYTES % (AUTO) 15.1 % (2.0-12.0); PLATELET COUNT (AUTO) 242 /CMM (150-450); RED BLOOD CELL COUNT(AUTO) 4.95 MIL/uL (4.5-6.0); WHITE BLOOD COUNT (AUTO) 6.1 K/uL (4.3-11.0)
[2018-08-07 21:43] LABS: CALCIUM, SERUM 8.9 mg/dL (8.5-10.1); CARBON DIOXIDE 31 mmol/L (21-32); CHLORIDE 103 mmol/L (98-107); CREATININE 0.7 mg/dL (0.6-1.3); GLUCOSE 131 mg/dL (74-106); POTASSIUM 3.3 mmol/L (3.5-5.1); SODIUM SERUM 141 mmol/L (136-145); UREA NITROGEN, BLOOD 8 mg/dL (7-18)
[2018-08-07 21:51] LABS: ALANINE AMINOTRANSFERASE 93 U/L (12-78); ALBUMIN 3.4 g/dL (3.4-5.0); ALCOHOL, BLOOD 561 mg/dL (0-0); ALKALINE PHOSPHATASE 128 U/L (46-116); ASPARTATE AMINOTRANSFERASE 105 U/L (15-37); BILIRUBIN,DIRECT 0.2 mg/dL (0.0-0.2); BILIRUBIN,TOTAL 0.4 mg/dL (0.2-1.0); SALICYLATE < 2.8 mg/dL (2.8-20.0); TOTAL PROTEIN, SERUM 7.9 g/dL (6.4-8.2)
[2018-08-07 21:52] LABS: ACETAMINOPHEN < 2 ug/ml (10-30)
[2018-08-07] MEDS ORDERED: IV NS 0.9% 1,000 ML BAG IV ONE (22:00)
[2018-08-07 22:01] LABS: LYMPHOCYTES % (MANUAL) 37 % (16-48); MONOCYTES % (MANUAL) 10 % (0-11.0); NEUTROPHILS % (MANUAL) 53 (42-76)
--- NOTE | 2018-08-07 23:05 | NUR ---
REPORT GIVEN TO CHARGE NURSE YVON FOR MARYANA.
--- NOTE | 2018-08-08 04:30 | NUR ---
PT AT BEDSIDE. PT OK TO BE DISCHARGED HOME PER DR DOSHI. PT AWAKE AND ALERT, AMBULATORY WITH STEADY GAIT. Patient discharged to home in stable condition. Written and verbal after care instructions given. Patient verbalizes understanding of instruction.
[2018-08-08 05:23] VITALS: BP 121/79
== END 2018-08-08 04:30 | disposition home or self-care (01) ==
LOC: ER 21:10
DX: F10.129 Alcohol abuse with intoxication, unspecified (principal); R56.9 Unspecified convulsions; E11.9 Type 2 diabetes mellitus without complications; Y90.8 Blood alcohol level of 240 mg/100 ml or more
CPT/HCPCS: 36415; 80048; 80076; 80329; 85025; 99284; A4606; G0480 ×2; J7030; Z7610